=== PATIENT | female | born 1960 | race Two or more races ===

== ENCOUNTER 2017-10-26 12:06 | Inpatient (IN) | payer OTHER ==
[2017-10-26 12:39] VITALS: BMI 25.9
--- NOTE | 2017-10-26 16:36 | HP ---
COWS - Scale Resting Pulse: 2= [place] 101-120 Sweatin= Chills/Flushing Restless Observation: 3= Extraneous Movement Pupil Size: 0= Normal to Room Light Bone or Joint Aches: 2= Severe Diffuse Aches Runny Nose/ Eye Tearin= None GI Upset > 30mins: 0= None Tremor Observation: 2= Slight Tremor Visible Yawning Observation: 1= 1-2x During Session Anxiety or Irritability: 2=Irritable/Anxious Goose Flesh Skin: 3=Piloerection COWS Score: 16 CIWA Score - CIWA Score Nausea/Vomitin-No Nausea/No Vomiting Muscle Tremors: 3 Anxiety: 4-Mod. Anxious/Guarded Agitation: 4-Moderately Restless Paroxysmal Sweats: 3 Orientation: 0-Oriented Tacttile Disturbances: 3-Moderate Itch/Numb/Burn Auditory Disturbances: 0-None Visual Disturbances: 0-None Headache: 0-None Present CIWA-Ar Total Score: 17 Admission ROS S - HPI Chief Complaint: "I'm here because I relapsed in March." Patient is here to Detox from Alcohol and Heroin. Allergies/Adverse Reactions: Allergies Allergy/AdvReac Type Severity Reaction Status Date / Time No Known Allergies Allergy Verified 10/26/17 16:23 History of Present Illness: Patient is a 57 YO female here to detox from Alcohol and Heroin. Patient had a Detox admission at [facility] @ 1994. Longest period of sobriety / non-drug use in recent years: 18 years, up until 03/2017. Exam Limitations: No Limitations - Ebola screening Have you traveled outside of the country in the last 21 days: No Have you had contact with anyone from an Ebola affected area: No Have you been sick,other than usual withdrawal symptoms: No Do you have a fever: No - Review of Systems Constitutional: Diaphoresis, Malaise, Night Sweats, Changes in sleep, Unintentional Wgt. Loss (Lost approx. 20 lbs over last 6 months.) EENT: reports: Blurred Vision Respiratory: reports: No Symptoms reported Cardiac: reports: No Symptoms Reported GI: reports: Constipated, Poor Appetite : reports: No Symptoms Reported Musculoskeletal: reports: Neck Pain Integumentary: reports: No Symptoms Reported Neuro: reports: Numbness (Occasional in Bilateral hands.), Tingling (Occasional in Bilateral hands.), Tremors Endocrine: reports: No Symptoms Reported Hematology: reports: No Symptoms Reported Psychiatric: reports: Judgement Intact, Mood/Affect Appropiate, Orientated x3, Anxious, Depressed (On med.) Other Systems: Reviewed and Negative Patient History - Patient Medical History Hx Anemia: No Hx Asthma: Yes (Past SOB, unclear about exact diagnosis.Uses Ventolin Inhaler occasionally.) Hx Chronic Obstructive Pulmonary Disease (COPD): No Hx Cancer: No Hx Cardiac Disorders: No Hx Congestive Heart Failure: No Hx Hypertension: Yes (Takes HCTZ.) Hx Hypercholesterolemia: Yes (No meds., managed through diet and exercise.) Hx Pacemaker: No HX Cerebrovascular Accident: No Hx Seizures: No Hx Dementia: No Hx Diabetes: No Hx Gastrointestinal Disorders: No Hx Liver Disease: Yes (Hep C, Diagnosed 1992, No treatment yet.) Hx Genitourinary Disorders: No Hx Sexually Transmitted Disorders: No Hx Renal Disease (ESRD): No Hx Thyroid Disease: No Hx Human Immunodeficiency Virus (HIV): No (Last Tested: approx. 18 years ago: NEGATIVE.) Hx Hepatitis C: Yes (Diagnosed: 1992, No Treatment yet.) Hx Depression: Yes (On med.) Hx Suicide Attempt: No (PATIENT DENIES CURRENT SI /HI.) Hx Bipolar Disorder: No Hx Schizophrenia: No Other Medical History: PTSD, diagnosed @ 1994. - Patient Surgical History Past Surgical History: Yes Hx Neurologic Surgery: No Hx Cataract Extraction: No Hx Cardiac Surgery: No Hx Lung Surgery: No Hx Breast Surgery: No Hx Breast Biopsy: No Hx Abdominal Surgery: No Hx Appendectomy: Yes (Age 15.) Hx Cholecystectomy: No Hx Genitourinary Surgery: No Hx Section: Yes (1992.) Hx Orthopedic Surgery: No Hx Hysterectomy: No Other Surgical History: Tonsillectomy, age 4. Anesthesia Reaction: No - PPD History Previous Implant?: Yes Documented Results: Negative w/o proof Implanted On Prior R Admission?: No PPD to be Administered?: Yes - Reproductive History Patient is a Female of Child Bearing Age (11 -55 yrs old): No LMP comment: Approx. Age 43. - Smoking Cessation Smoking history: Current every day smoker Aproximately how many cigarettes per day: 20 Cigars Per Day: 0 Hx Chewing Tobacco Use: No Initiated information on smoking cessation: Yes 'Breaking Loose' booklet given: 10/26/17 (GIVEN ON UNIT.) - Substance & Tx. History Hx Alcohol Use: Yes Hx Substance Use: Yes Substance Use Type: Alcohol, Heroin Hx Substance Use Treatment: Yes (1 Previous Detox admission at [facility] @ 1994, Rehab in [place] after.) - Substances Abused Heroin Route: Inhalation Frequency: Daily Amount used: 0.5 - 1 Grams Age of first use: 11 Date of Last Use: 10/26/17 Alcohol Route: Oral Frequency: Daily Amount used: 1 Bottle Wine. Age of first use: 6 Date of Last Use: 10/25/17 Family Disease History - Family Disease History Family Disease History: Heart Disease: Father (CA (2), Pacemaker.) Admission Physical Exam S - Vital Signs Vital Signs: Vital Signs - 24 hr 10/26/17 12:36 Temperature 96.2 F L Pulse Rate 110 H Respiratory 19 Rate Blood Pressure 99/71 - Physical General Appearance: Yes: Nourished, Appropriately Dressed, Mild Distress, Tremorous, Anxious HEENTM: Yes: Hearing grossly Normal, Normocephalic, Normal Voice, ASIM, Pharynx Normal Respiratory: Yes: Chest Non-Tender, Lungs Clear, No Respiratory Distress, No Accessory Muscle Use Neck: Yes: No masses,lesions,Nodules, Supple, Trachea in good position Breast: Yes: Breast Exam Deferred Cardiology: Yes: Regular Rhythm, Regular Rate, S1, S2 Abdominal: Yes: Normal Bowel Sounds, Non Tender, Flat, Soft Genitourinary: Yes: Within Normal Limits Back: Yes: Normal Inspection Musculoskeletal: Yes: Gait Steady Extremities: Yes: Normal Capillary Refill, Normal Range of Motion, Non-Tender, Tremors Neurological: Yes: Fully Oriented, Alert, Normal Mood/Affect, Normal Response Integumentary: Yes: Normal Color, Dry, Warm Lymphatic: Yes: Within Normal Limits - Diagnostic (1) Alcohol dependence with uncomplicated withdrawal Current Visit: Yes Status: Acute (2) Opioid dependence with withdrawal Current Visit: Yes Status: Acute (3) Nicotine dependence Current Visit: Yes Status: Chronic Qualifiers: Nicotine product type: cigarettes Substance use status: uncomplicated Qualified Code(s): F17.210 - Nicotine dependence, cigarettes, uncomplicated (4) Depression Current Visit: Yes Status: Chronic Qualifiers: Depression Type: unspecified Qualified Code(s): F32.9 - Major depressive disorder, single episode, unspecified (5) Hepatitis C Current Visit: Yes Status: Chronic Qualifiers: Viral hepatitis chronicity: chronic Hepatic coma status: without hepatic coma Qualified Code(s): B18.2 - Chronic viral hepatitis C (6) History of asthma Current Visit: Yes Status: Suspected (7) Hypertension Current Visit: Yes Status: Chronic Qualifiers: Hypertension type: essential hypertension Qualified Code(s): I10 - Essential (primary) hypertension (8) History of posttraumatic stress disorder (PTSD) Current Visit: Yes Status: Chronic Cleared for Admission [facility] - Detox or Rehab [facility] Level of Care: Medically Managed (Patient Requests Valium Detox Regmien for Alcohol Detox.) Detox Regimen/Protocol: Methadone/Valium [facility] Breath Alcohol Content Breath Alcohol Content: 0 Urine Pregancy Test - Result Urine Test Results: Negative- NO Line Present Urine Drug Screen - Results Drug Screen Negative: No Urine Drug Screen Results: OPI-Opiates, TCA-Tricyclic Antidepress, OXY-Oxycodone
[2017-10-26] MEDS ORDERED: MAGNESIUM CITRATE 300 ML BOTTLE PO PRN (17:27)
[2017-10-26] MEDS ORDERED: ACETAMINOPHEN 325 MG TABLET (FP) PO PRN (17:27)
[2017-10-26] MEDS ORDERED: MENTHOL/PHENOL 1 EACH UD MM PRN (17:27)
[2017-10-26] MEDS ORDERED: MAG HYDROX/AL HYDROX/SIMETH 30 ML UNIT-DOSE CUP PO PRN (17:27)
[2017-10-26] MEDS ORDERED: guaiFENesin/D-METHORPHAN HB 10 ML UNIT-DOSE CUPS PO PRN (17:27)
[2017-10-26] MEDS ORDERED: IBUPROFEN 400 MG TABLET (FP) PO PRN (17:27)
[2017-10-26] MEDS ORDERED: MAGNESIUM HYDROX 2400MG/30ML ORAL SUSPENSION 30 ML CUP PO PRN (17:27)
[2017-10-26] MEDS ORDERED: P-EPHED 60MG/TRIPROLIDI 2.5MG TABLET PO PRN (17:27)
[2017-10-26] MEDS ORDERED: LOPERAMIDE HCL 2 MG CAPSULE PO PRN (17:27)
[2017-10-26] MEDS ORDERED: ALBUTEROL SO4 18 GM HFA INHALER IH PRN (17:31)
[2017-10-26] MEDS ORDERED: diazePAM 5 MG TABLET PO ONE (18:15)
[2017-10-26] MEDS ORDERED: METHADONE HCL 10 MG TABLET (FOR DETOX USE ONLY) PO ONE ×2 (18:15→23:00)
[2017-10-26] MEDS: NICOTINE 21 MG/24 HOURS TOPICAL PATCH TD SCH (20:16)
[2017-10-26] MEDS: THIAMINE HCL 100 MG TABLET (FP) PO SCH (22:23)
[2017-10-26] MEDS: diazePAM 5 MG TABLET PO SCH (22:23)
[2017-10-27 02:34] LABS: URINE APPEARANCE SLCLOUDY; URINE BILIRUBIN NEGATIVE (NEGATIVE); URINE BLOOD NEGATIVE (NEGATIVE); URINE COLOR AMBER; URINE GLUCOSE (UA) NEGATIVE (NEGATIVE); URINE KETONE TRACE (NEGATIVE); URINE LEUK ESTERASE NEGATIVE (NEGATIVE); URINE NITRITE NEGATIVE (NEGATIVE)
[2017-10-27 02:51] LABS: URINE PROTEIN 1+ (NEGATIVE)
[2017-10-27 03:00] LABS: EPI CELLS RARE /HPF (FEW); URINE HYALINE CAST 6 /lpf; URINE MUCUS RARE
[2017-10-27] MEDS: diazePAM 5 MG TABLET PO SCH ×3 (05:38→22:08)
[2017-10-27] MEDS ORDERED: METHADONE HCL 10 MG TABLET (FOR DETOX USE ONLY) PO SCH (10:00)
[2017-10-27 10:14] LABS: HEMATOCRIT 45.7 % (32.4-45.2); MCHC 32.8 g/dl (32.0-36.0); MEAN CELL VOLUME 94.4 fl (80-96); MEAN PLT VOLUME 7.8 fl (7.5-11.1); PLATELET COUNT 274 K/MM3 (134-434); RBC 4.84 M/mm3 (3.60-5.2); RDW 12.9 % (11.6-15.6); WHITE BLOOD COUNT 8.3 K/mm3 (4.0-10.0)
[2017-10-27 10:27] LABS: ALBUMIN 3.7 g/dl (3.4-5.0); ANION GAP 9 (8-16); BLOOD UREA NITROGEN 13 mg/dL (7-18); CALCIUM 9.1 mg/dL (8.5-10.1); CHLORIDE 101 mmol/L (98-107); CO2 30 mmol/L (21-32); GLUCOSE,RANDOM 87 mg/dL (74-106); POTASSIUM 3.5 mmol/L (3.5-5.1); SGOT/AST 15 U/L (15-37); SGPT/ALT 27 U/L (12-78); SODIUM 140 mmol/L (136-145)
[2017-10-27 10:29] LABS: ALK PHOS 59 U/L (45-117); BILIRUBIN,TOTAL 0.9 mg/dL (0.2-1.0); CREATININE 0.9 mg/dL (0.55-1.02); TOT PROT 6.9 g/dl (6.4-8.2)
[2017-10-27] MEDS: PRENATAL VITAMINS W/ FOLIC ACID TABLET (FP) PO SCH (10:31)
[2017-10-27] MEDS: NICOTINE 21 MG/24 HOURS TOPICAL PATCH TD SCH (10:31)
[2017-10-27] MEDS: HYDROCHLOROTHIAZIDE 25 MG TABLET (FP) PO SCH (10:31)
[2017-10-27] MEDS: diazePAM 5 MG TABLET PO PRN (10:33)
--- NOTE | 2017-10-27 13:34 | CONSULT ---
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 Substance Abuse History: Discussed in this session.See current [facility] report for details : Smoking history: Current every day smoker. Aproximately how many cigarettes per day: 20. Cigars Per Day: 0. Hx Chewing Tobacco Use: No. Initiated information on smoking cessation: Yes. 'Breaking Loose' booklet given : 10/26/17 (GIVEN ON UNIT.). - Substance & Tx. History. Hx Alcohol Use: Yes. Hx Substance Use: Yes. Substance Use Type: Alcohol, Heroin. Hx Substance Use Treatment: Yes (1 Previous Detox admission at [facility] @ 1994, Rehab in [place] after.). - Substances Abused. Heroin. Route: Inhalation. Frequency: Daily. Amount used: 0.5 - 1 Grams. Age of first use: 11. Date of Last Use: 10/26/17. Alcohol. Route: Oral. Frequency: Daily. Amount used: 1 Bottle Wine. Age of first use: 6. Date of Last Use: 10/25/17 Medical History: Remarkable for hepatitis C,bronchial asthma, hypercholesterolemia,one section and a history of appendectomy + tonsillectomy (age [age]). Psychiatric History: No reported history of psychiatric hospitalizations.Patient indicates past contact with a therapist in [place] for " talk therapy " to address MDD + PTSD.No prior exposure to psychotropic medications other than amitryptiline 25 mg/hs (for 25 consecutive years as per self-report) for chronic insomnia.No affiliation with psychiatrist for OPD care.Ms Bolanos denies history of suicide attempts. Physical/Sexual Abuse/Trauma History: Patient declines to discuss this domain. Additional Comment: Urine Drug Screen Results: OPI-Opiates, TCA-Tricyclic Antidepressant, OXY-Oxycodone.Noted. Mental Status Exam - Mental Status Exam Alert and Oriented to: Time, Place, Person Cognitive Function: Good Patient Appearance: Well Groomed Mood: Hopeful, Euthymic Affect: Appropriate, Normal Range Patient Behavior: Appropriate (well-mannered,articulate historian), Cooperative Speech Pattern: Clear, Appropriate (speaks occitan without accent) Voice Loudness: Normal Thought Process: Intact, Goal Oriented Thought Disorder: Not Present Hallucinations: Denies Suicidal Ideation: Denies Homicidal Ideation: Denies Insight/Judgement: Fair Sleep: Poorly, Difficulty falling asleep Appetite: Good Muscle strength/Tone: Normal Gait/Station: Normal Psychiatric Findings - Problem List ([place] 1, 2,3) (1) Alcohol dependence with uncomplicated withdrawal Current Visit: Yes Status: Acute (2) Opioid dependence with withdrawal Current Visit: Yes Status: Acute (3) Nicotine dependence Current Visit: Yes Status: Acute Qualifiers: Nicotine product type: cigarettes Substance use status: uncomplicated Qualified Code(s): F17.210 - Nicotine dependence, cigarettes, uncomplicated (4) History of posttraumatic stress disorder (PTSD) Current Visit: Yes Status: Chronic (5) Insomnia Current Visit: Yes Status: Acute - Initial Treatment Plan Initial Treatment Plan: No previous records for review.Psychoeducation.Sleep hygiene discussed.Empathy and suppport are extended to patient.Detoxification in progress.Elavil 25 mg po hs.Ordered.Side effects/benefits discussed with the patient.Ms Bolanos provided her consent (verbal) to telegraphic typewriter mechanic for the inclusion of amitryptiline to this regimen.Observation.EKG (repeat on 10/27/17 : Normal).
--- NOTE | 2017-10-27 16:32 | EKG ---
Test Reason : Blood Pressure : / mmHG Vent. Rate : 072 BPM Atrial Rate : 072 BPM P-R Int : 156 ms QRS Dur : 068 ms QT Int : 378 ms P-R-T Axes : 053 019 034 degrees QTc Int : 413 ms NORMAL SINUS RHYTHM NORMAL ECG WHEN COMPARED WITH ECG OF 26-OCT-2017 20:07, QRS DURATION HAS DECREASED NON-SPECIFIC CHANGE IN ST SEGMENT IN LATERAL LEADS QT HAS SHORTENED Confirmed by KADEN MARTINS, JAMES ([id number]) on 10/27/2017 4:32:31 PM Referred By: Confirmed By:JAMES ALFONSO MD
--- NOTE | 2017-10-27 19:23 | PN ---
[facility] CIWA - CIWA Score Nausea/Vomitin-No Nausea/No Vomiting Muscle Tremors: 3 Anxiety: 4-Mod. Anxious/Guarded Agitation: 4-Moderately Restless Paroxysmal Sweats: 3 Orientation: 0-Oriented Tacttile Disturbances: 0-None Auditory Disturbances: 0-None Visual Disturbances: 0-None Headache: 0-None Present CIWA-Ar Total Score: 14 S COWS - Scale Resting Pulse: 2= [place] 101-120 Sweatin=Flushed/Facial Moisture Restless Observation: 1= Difficult to Sit Still Pupil Size: 0= Normal to Room Light Bone or Joint Aches: 1= Mild Discomfort Runny Nose/ Eye Tearin= Runny Nose/Eyes GI Upset > 30mins: 2= Nausea/Diarrhea Tremor Observation of Outstretched Hands: 2= Slight Tremor Visible Yawning Observation: 1= 1-2x During Session Anxiety or Irritability: 2=Irritable/Anxious Goose Flesh Skin: 0=Smooth Skin COWS Score: 15 [facility] Progress Note (SOAP) Subjective: Anxiety,tremors,sweating,interrupted sleep,restless,body aches Objective: 10/27/17 19:22 Vital Signs - 8 hr 10/27/17 15:43 Temperature 98.1 F Pulse Rate 101 H Respiratory 20 Rate Blood Pressure 131/86 Laboratory Tests 10/26/17 10/27/17 10/27/17 20:34 07:50 07:50 WBC 8.3 RBC 4.84 Hgb 15.0 Hct 45.7 H MCV 94.4 MCH 31.0 MCHC 32.8 RDW 12.9 Plt Count 274 MPV 7.8 Sodium 140 Potassium 3.5 Chloride 101 Carbon Dioxide 30 Anion Gap 9 BUN 13 Creatinine 0.9 Creat Clearance w eGFR > 60 Random Glucose 87 Calcium 9.1 Total Bilirubin 0.9 AST 15 ALT 27 Alkaline Phosphatase 59 Total Protein 6.9 Albumin 3.7 Urine Color Josie Urine Appearance Slcloudy Urine pH 5.0 Ur Specific [place] 1.018 Urine Protein 1+ H Urine Glucose (UA) Negative Urine Ketones Trace H Urine Blood Negative Urine Nitrite Negative Urine Bilirubin Negative Urine Urobilinogen 2.0 H Ur Leukocyte Esterase Negative Urine WBC (Auto) 2 Urine RBC (Auto) 7 Ur Epithelial Cells Rare Hyaline Casts 6 Urine Mucus Rare RPR Titer 10/27/17 07:50 WBC RBC Hgb Hct MCV MCH MCHC RDW Plt Count MPV Sodium Potassium Chloride Carbon Dioxide Anion Gap BUN Creatinine Creat Clearance w eGFR Random Glucose Calcium Total Bilirubin AST ALT Alkaline Phosphatase Total Protein Albumin Urine Color Urine Appearance Urine pH Ur Specific [place] Urine Protein Urine Glucose (UA) Urine Ketones Urine Blood Urine Nitrite Urine Bilirubin Urine Urobilinogen Ur Leukocyte Esterase Urine WBC (Auto) Urine RBC (Auto) Ur Epithelial Cells Hyaline Casts Urine Mucus RPR Titer Nonreactive labs noted Assessment: 10/27/17 19:22 Withdrawal sx. Plan: Continue detox
[2017-10-27] MEDS: AMITRIPTYLINE HCL 25 MG TABLET (FP) PO SCH (22:08)
[2017-10-27] MEDS: THIAMINE HCL 100 MG TABLET (FP) PO SCH (22:08)
[2017-10-28] MEDS ORDERED: METHADONE HCL 5 MG TABLET (FOR DETOX USE ONLY) PO SCH (10:00)
[2017-10-28] MEDS: diazePAM 5 MG TABLET PO SCH ×2 (10:14→22:08)
[2017-10-28] MEDS: PRENATAL VITAMINS W/ FOLIC ACID TABLET (FP) PO SCH (10:14)
[2017-10-28] MEDS: HYDROCHLOROTHIAZIDE 25 MG TABLET (FP) PO SCH (10:14)
[2017-10-28] MEDS: NICOTINE 21 MG/24 HOURS TOPICAL PATCH TD SCH (10:15)
[2017-10-28] MEDS: diazePAM 5 MG TABLET PO PRN (13:11)
--- NOTE | 2017-10-28 15:01 | PN ---
[facility] CIWA - CIWA Score Nausea/Vomitin-Mild Nausea/No Vomiting Muscle Tremors: 3 Anxiety: 4-Mod. Anxious/Guarded Agitation: 4-Moderately Restless Paroxysmal Sweats: 3 Orientation: 0-Oriented Tacttile Disturbances: 0-None Auditory Disturbances: 0-None Visual Disturbances: 0-None Headache: 0-None Present CIWA-Ar Total Score: 15 S COWS - Scale Resting Pulse: 2= [place] 101-120 Sweatin=Flushed/Facial Moisture Restless Observation: 1= Difficult to Sit Still Pupil Size: 0= Normal to Room Light Bone or Joint Aches: 1= Mild Discomfort Runny Nose/ Eye Tearin= Runny Nose/Eyes GI Upset > 30mins: 2= Nausea/Diarrhea Tremor Observation of Outstretched Hands: 2= Slight Tremor Visible Yawning Observation: 1= 1-2x During Session Anxiety or Irritability: 2=Irritable/Anxious Goose Flesh Skin: 0=Smooth Skin COWS Score: 15 [facility] Progress Note (SOAP) Subjective: Anxiety,tremors,sweating,interrupted sleep,restless Objective: 10/28/17 15:00 Last Vital Signs Temp Pulse Resp BP Pulse Ox 98.2 F 105 H 18 148/84 10/28/17 14:17 10/28/17 14:17 10/28/17 14:17 10/28/17 14:17 Laboratory Tests 10/26/17 10/27/17 10/27/17 20:34 07:50 07:50 WBC 8.3 RBC 4.84 Hgb 15.0 Hct 45.7 H MCV 94.4 MCH 31.0 MCHC 32.8 RDW 12.9 Plt Count 274 MPV 7.8 Sodium 140 Potassium 3.5 Chloride 101 Carbon Dioxide 30 Anion Gap 9 BUN 13 Creatinine 0.9 Creat Clearance w eGFR > 60 Random Glucose 87 Calcium 9.1 Total Bilirubin 0.9 AST 15 ALT 27 Alkaline Phosphatase 59 Total Protein 6.9 Albumin 3.7 Urine Color Josie Urine Appearance Slcloudy Urine pH 5.0 Ur Specific [place] 1.018 Urine Protein 1+ H Urine Glucose (UA) Negative Urine Ketones Trace H Urine Blood Negative Urine Nitrite Negative Urine Bilirubin Negative Urine Urobilinogen 2.0 H Ur Leukocyte Esterase Negative Urine WBC (Auto) 2 Urine RBC (Auto) 7 Ur Epithelial Cells Rare Hyaline Casts 6 Urine Mucus Rare RPR Titer 10/27/17 07:50 WBC RBC Hgb Hct MCV MCH MCHC RDW Plt Count MPV Sodium Potassium Chloride Carbon Dioxide Anion Gap BUN Creatinine Creat Clearance w eGFR Random Glucose Calcium Total Bilirubin AST ALT Alkaline Phosphatase Total Protein Albumin Urine Color Urine Appearance Urine pH Ur Specific [place] Urine Protein Urine Glucose (UA) Urine Ketones Urine Blood Urine Nitrite Urine Bilirubin Urine Urobilinogen Ur Leukocyte Esterase Urine WBC (Auto) Urine RBC (Auto) Ur Epithelial Cells Hyaline Casts Urine Mucus RPR Titer Nonreactive labs noted Assessment: 10/28/17 15:00 Withdrawal sx. Plan: Continue detox
--- NOTE | 2017-10-28 17:15 | EKG ---
Test Reason : Blood Pressure : / mmHG Vent. Rate : 098 BPM Atrial Rate : 098 BPM P-R Int : 158 ms QRS Dur : 094 ms QT Int : 388 ms P-R-T Axes : 062 041 071 degrees QTc Int : 495 ms NORMAL SINUS RHYTHM POSSIBLE LEFT ATRIAL ENLARGEMENT PROLONGED QT ABNORMAL ECG NO PREVIOUS ECGS AVAILABLE Confirmed by JAMES ALFONSO MD ([id number]) on 10/28/2017 5:15:13 PM Referred By: Confirmed By:JAMES ALFONSO MD
[2017-10-28] MEDS: AMITRIPTYLINE HCL 25 MG TABLET (FP) PO SCH (22:08)
[2017-10-28] MEDS: THIAMINE HCL 100 MG TABLET (FP) PO SCH (22:08)
[2017-10-29] MEDS ORDERED: METHADONE HCL 10 MG TABLET (FOR DETOX USE ONLY) PO SCH (10:00)
[2017-10-29] MEDS: PRENATAL VITAMINS W/ FOLIC ACID TABLET (FP) PO SCH (10:36)
[2017-10-29] MEDS: HYDROCHLOROTHIAZIDE 25 MG TABLET (FP) PO SCH (10:36)
[2017-10-29] MEDS: diazePAM 5 MG TABLET PO SCH ×2 (10:36→22:27)
[2017-10-29] MEDS: NICOTINE 21 MG/24 HOURS TOPICAL PATCH TD SCH (10:37)
--- NOTE | 2017-10-29 12:02 | PN ---
[facility] Progress Note (SOAP) Subjective: FEELING BETTER Objective: 10/29/17 12:01 Vital Signs Temperature 98.1 F 10/29/17 09:49 Pulse Rate 94 H 10/29/17 09:49 Respiratory Rate 20 10/29/17 09:49 Blood Pressure 141/90 10/29/17 09:49 O2 Sat by Pulse Oximetry (%) Laboratory Tests 10/26/17 10/27/17 10/27/17 20:34 07:50 07:50 WBC 8.3 RBC 4.84 Hgb 15.0 Hct 45.7 H MCV 94.4 MCH 31.0 MCHC 32.8 RDW 12.9 Plt Count 274 MPV 7.8 Sodium 140 Potassium 3.5 Chloride 101 Carbon Dioxide 30 Anion Gap 9 BUN 13 Creatinine 0.9 Creat Clearance w eGFR > 60 Random Glucose 87 Calcium 9.1 Total Bilirubin 0.9 AST 15 ALT 27 Alkaline Phosphatase 59 Total Protein 6.9 Albumin 3.7 Urine Color Josie Urine Appearance Slcloudy Urine pH 5.0 Ur Specific [place] 1.018 Urine Protein 1+ H Urine Glucose (UA) Negative Urine Ketones Trace H Urine Blood Negative Urine Nitrite Negative Urine Bilirubin Negative Urine Urobilinogen 2.0 H Ur Leukocyte Esterase Negative Urine WBC (Auto) 2 Urine RBC (Auto) 7 Ur Epithelial Cells Rare Hyaline Casts 6 Urine Mucus Rare RPR Titer 10/27/17 07:50 WBC RBC Hgb Hct MCV MCH MCHC RDW Plt Count MPV Sodium Potassium Chloride Carbon Dioxide Anion Gap BUN Creatinine Creat Clearance w eGFR Random Glucose Calcium Total Bilirubin AST ALT Alkaline Phosphatase Total Protein Albumin Urine Color Urine Appearance Urine pH Ur Specific [place] Urine Protein Urine Glucose (UA) Urine Ketones Urine Blood Urine Nitrite Urine Bilirubin Urine Urobilinogen Ur Leukocyte Esterase Urine WBC (Auto) Urine RBC (Auto) Ur Epithelial Cells Hyaline Casts Urine Mucus RPR Titer Nonreactive PT AOX3 IN NAD AMBULATING Assessment: 10/29/17 12:02 WITHDRAWAL SX'S Plan: CONT. DETOX INCREASE FLUIDS D/C IN AM
[2017-10-29] MEDS: THIAMINE HCL 100 MG TABLET (FP) PO SCH (22:26)
[2017-10-29] MEDS: AMITRIPTYLINE HCL 25 MG TABLET (FP) PO SCH (22:27)
[2017-10-30] MEDS ORDERED: METHADONE HCL 5 MG TABLET (FOR DETOX USE ONLY) PO SCH (06:00)
[2017-10-30 06:09] VITALS: BP 129/84; PULSE 78; TEMP 97.3
[2017-10-30] MEDS: PRENATAL VITAMINS W/ FOLIC ACID TABLET (FP) PO SCH (09:43)
[2017-10-30] MEDS: HYDROCHLOROTHIAZIDE 25 MG TABLET (FP) PO SCH (09:46)
[2017-10-30] MEDS ORDERED: diazePAM 5 MG TABLET PO SCH (10:00)
[2017-10-30] MEDS ORDERED: METHADONE HCL 10 MG TABLET (FOR DETOX USE ONLY) PO SCH (10:00)
--- NOTE | 2017-10-30 12:36 | DS ---
[facility] Detox Discharge Summary Admission Date: 10/26/17 Discharge Date: 10/30/17 - History Present History: Alcohol Dependence, Opioid Dependence Pertinent Past History: Asthma HTN Hepatitis C - Physical Exam Results Vital Signs: Vital Signs Temperature 97.3 F L 10/30/17 06:00 Pulse Rate 78 10/30/17 06:00 Respiratory Rate 18 10/30/17 06:00 Blood Pressure 129/84 10/30/17 06:00 O2 Sat by Pulse Oximetry (%) Pertinent Admission Physical Exam Findings: Withdrawal symptoms Laboratory Tests 10/26/17 10/27/17 10/27/17 20:34 07:50 07:50 WBC 8.3 RBC 4.84 Hgb 15.0 Hct 45.7 H MCV 94.4 MCH 31.0 MCHC 32.8 RDW 12.9 Plt Count 274 MPV 7.8 Sodium 140 Potassium 3.5 Chloride 101 Carbon Dioxide 30 Anion Gap 9 BUN 13 Creatinine 0.9 Creat Clearance w eGFR > 60 Random Glucose 87 Calcium 9.1 Total Bilirubin 0.9 AST 15 ALT 27 Alkaline Phosphatase 59 Total Protein 6.9 Albumin 3.7 Urine Color Josie Urine Appearance Slcloudy Urine pH 5.0 Ur Specific [place] 1.018 Urine Protein 1+ H Urine Glucose (UA) Negative Urine Ketones Trace H Urine Blood Negative Urine Nitrite Negative Urine Bilirubin Negative Urine Urobilinogen 2.0 H Ur Leukocyte Esterase Negative Urine WBC (Auto) 2 Urine RBC (Auto) 7 Ur Epithelial Cells Rare Hyaline Casts 6 Urine Mucus Rare RPR Titer 10/27/17 07:50 WBC RBC Hgb Hct MCV MCH MCHC RDW Plt Count MPV Sodium Potassium Chloride Carbon Dioxide Anion Gap BUN Creatinine Creat Clearance w eGFR Random Glucose Calcium Total Bilirubin AST ALT Alkaline Phosphatase Total Protein Albumin Urine Color Urine Appearance Urine pH Ur Specific [place] Urine Protein Urine Glucose (UA) Urine Ketones Urine Blood Urine Nitrite Urine Bilirubin Urine Urobilinogen Ur Leukocyte Esterase Urine WBC (Auto) Urine RBC (Auto) Ur Epithelial Cells Hyaline Casts Urine Mucus RPR Titer Nonreactive Labs noted: UA shows mild proteinuria - Treatment Hospital Course: Detox Protocol Followed, Detoxed Safely, Responded well, Discharged Condition Good - Medication Discharge Medications: Ambulatory Orders Albuterol Sulfate Inhaler - [Ventolin Hfa Inhaler -] 2 inh PO Q4H PRN 10/26/17 Amitriptyline HCl [Elavil -] 25 mg PO DAILY 10/26/17 Hydrochlorothiazide 25 mg PO DAILY 10/26/17 - Diagnosis (1) Alcohol dependence with uncomplicated withdrawal Status: Acute (2) Depression Status: Chronic Qualifiers: Depression Type: unspecified Qualified Code(s): F32.9 - Major depressive disorder, single episode, unspecified (3) Hepatitis C Status: Chronic Qualifiers: Viral hepatitis chronicity: chronic Hepatic coma status: without hepatic coma Qualified Code(s): B18.2 - Chronic viral hepatitis C (4) History of asthma Status: Chronic (5) History of posttraumatic stress disorder (PTSD) Status: Chronic (6) Hypertension Status: Chronic Qualifiers: Hypertension type: essential hypertension Qualified Code(s): I10 - Essential (primary) hypertension (7) Nicotine dependence Status: Chronic Qualifiers: Nicotine product type: cigarettes Substance use status: uncomplicated Qualified Code(s): F17.210 - Nicotine dependence, cigarettes, uncomplicated (8) Opioid dependence with withdrawal Status: Acute - AMA Did Patient Leave Against Medical Advice: No (F/U with PCP within 1 week)
[2017-10-31] MEDS ORDERED: METHADONE HCL 5 MG TABLET (FOR DETOX USE ONLY) PO SCH (06:00)
--- NOTE | 2017-11-07 13:34 | EKG ---
Test Reason : Blood Pressure : / mmHG Vent. Rate : 079 BPM Atrial Rate : 079 BPM P-R Int : 170 ms QRS Dur : 088 ms QT Int : 422 ms P-R-T Axes : 051 061 066 degrees QTc Int : 483 ms NORMAL SINUS RHYTHM PROLONGED QT ABNORMAL ECG WHEN COMPARED WITH ECG OF 27-OCT-2017 07:08, QRS DURATION HAS INCREASED QT HAS LENGTHENED Confirmed by JAMES ALFONSO MD ([id number]) on 11/07/2017 1:33:41 PM Referred By: Confirmed By:JAMES ALFONOS MD
== END 2017-10-30 10:00 | disposition home or self-care (01) | DRG 773 ==
LOC: YASAS 12:06 → Y6N 17:42
PROVIDERS: ADMIT Internal Medicine; ATTEND Internal Medicine
PROC: HZ2ZZZZ Detoxification Services for Substance Abuse Treatment (ICD-10-PCS; principal; 2017-10-26)
DX: F11.23 Opioid dependence with withdrawal (principal); F10.230 Alcohol dependence with withdrawal, uncomplicated; F17.210 Nicotine dependence, cigarettes, uncomplicated; F32.9 Major depressive disorder, single episode, unspecified; F43.10 Post-traumatic stress disorder, unspecified; I10 Essential (primary) hypertension; J45.909 Unspecified asthma, uncomplicated; B18.2 Chronic viral hepatitis C
CPT/HCPCS: 36415; 80053; 81003; 81015; 85027; 86593; 93005; 93010